=== PATIENT | male | born 1985 | race Caucasian/White ===

== ENCOUNTER 2017-02-04 05:31 | Emergency (ER) | payer MEDICARE, OTHER ==
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
--- NOTE | 2017-02-04 06:46 | Diagnostic Imaging Report ---
DARYL SIGALA [facility] [address] [facility] [address] [id number] Report Submission Date: Feb 04, 2017 6:42:08 AM CDT Patient Study Name: KESHA LOCK Date: Feb 04, 2017 6:20:25 AM CDT Modality Type: CR Gender: M Description: LOWER EXTREMITY : 89 Institution: [facility] Physician: DARYL SIGALA Right tibia and fibula, AP and lateral, 4 images History: Pain, swelling Findings: The osseous, joint and soft tissue structures are normal. Impression: Normal. Electronically signed on Feb 04, 2017 6:42:08 AM CDT by: Ford LORD
[2017-02-04] MEDS: KETOROLAC TROMETHAMINE 60 MG/2 ML VIAL IM ONE (07:00)
[2017-02-04 07:15] VITALS: BP 137/81
== END 2017-02-04 07:10 | disposition home or self-care (01) ==
LOC: ED 05:31
DX: S86.891A Other injury of other muscle(s) and tendon(s) at lower leg level, right leg, initial encounter (principal); X58.XXXA Exposure to other specified factors, initial encounter; Y93.9 Activity, unspecified; Y99.9 Unspecified external cause status
CPT/HCPCS: 73590; J1885; 96372; 99283

== ENCOUNTER 2017-02-05 15:09 | Emergency (ER) | payer MEDICARE, OTHER ==
--- NOTE | 2017-02-05 15:47 | ED Physician Documentation ---
Lower Extremity Problem - HISTORIAN Historian: patient - HPI Chief Complaint: Lower Extremity Problem Additional Information: he returns to ER today after seeing Dr Ornelas here yesterday. CC of swelling and warmth in his right ankle and foot, radiating proximally. These symptoms began 9 days ago, has been taking Aleve x 6 days but that has made it worse. He says the symptoms began because he began walking a lot more than before. He says he is walking 30 miles per day. He also states that he felt a blister form on the ball of his foot at that same time, but the blister went away. He said "i should have popped it, but I didn't." He also says he feels his heart beat in his ears and in his eyes when he tries to go to sleep. He is demanding, and it is difficult to have a conversation poli him. He is argumentative, and I'm trying to calmly speak with him. Dr Ornelasdx him with a musculoskeletal issue yesterday and prescribed him meloxicam, which he admits he didn't get the prescription filled. When I asked what would he like me to do different, he said just give me another prescription for the meloxicam. The nurses stated he told them he needed to be on IV antibiotics. They also said Dr Ornelas drove him to a local hotel. He ended our conversation by saying he wanted us to call the helicopter and fly him to [facility]. From the history and the exam, I do believe this is a musculoskeletal issue, an inflammatory issue, and I don't believe it is an infectious issue. Location of Injury: R foot, R ankle Onset: days ago Timing: still present Duration: constant Recent Injury: Yes (most likely repetitive over use injury.) Severity: mild Quality: pain, swelling Exacerbated By: walking Relieved By: nothing Associated Symptoms: denies: chest pain, shortness of breath, rapid heart rate, fainting Further Comments: no - ROS CONST: no problems MS/SKIN/LYMPH: none CVS/RESP: none GI/: none EYES/ENT: none NERUO/PSYCH: difficulty walking. denies: headache, dizziness - PAST HX Past History: none PE Risk Factors: none Surgeries/Procedures: none Allergies/Adverse Reactions: Allergies Allergy/AdvReac Type Severity Reaction Status Date / Time fluphenazine enanthate Allergy Intermediate Verified 02/04/17 06:02 [From Prolixin] fluphenazine HCl Allergy Intermediate Verified 02/04/17 06:02 [From Prolixin] Home Medications: Ambulatory Orders Medication Instructions Recorded Cyclobenzaprine HCl 10 mg PO PRN PRN 02/04/17 Ibuprofen [Advil] 800 mg PO TID 02/04/17 Meloxicam [Mobic] 7.5 mg PO BID PRN #30 tablet 02/04/17 Naproxen 500 mg PO PRN PRN 02/04/17 Olanzapine [Olanzapine] 5 mg PO HS 02/04/17 - SOCIAL HX Smoking History: non-smoker Alcohol Use: none Drug Use: none - FAMILY HX Family History: none - VITAL SIGNS Vital Signs: Vital Signs Temp Pulse Resp BP Pulse Ox 137/81 02/04/17 07:10 - REVIEWED ASSESSMENTS Nursing Assessment Reviewed: Yes Vitals Reviewed: Yes Progress - Progress Progress: patient was demanding and I couldn't answer his demands. the nurses asked him to sign out AMA, but he requested "all the paperwork with his name on it." before we could meet his demands he wanted to leave, so they escorted him to the door. Lower Extremity Problem - EXAM General Appearance: no distress Hips: bilateral hip: non-tender, normal inspection Legs: bilateral: non-tender, normal inspection Knees: bilateral: non-tender, normal inspection Ankle: right: no evidence of injury, soft tissue tenderness, swelling Foot: right foot: no evidence of injury, soft tissue tenderness, swelling Neuro/Tendon: normal sensation EENT: ENT inspection normal RESPIRATORY: no resp distress NEURO/PSYCH: oriented X3, speech/cognition abnml (was argumentative from the beginning.) SKIN: warm/dry, normal color. No: cyanosis, diaphoresis, jaundice, mottled, pallor Discharge Clincal Impression: Bursitis of ankle Qualifiers: Laterality: right Qualified Code(s): M71.571 - Other bursitis, not elsewhere classified, right ankle and foot Referrals: Primary Doctor,No [Primary Care Provider] - 2 Days Condition: Stable Disposition: 01 HOME, SELF-CARE Decision to Admit: NO Date of Decison to Admit: 02/05/17 Decision Time: 15:51
[2017-02-05 15:53] VITALS: BP 120/81
== END 2017-02-05 15:50 | disposition home or self-care (01) ==
LOC: ED 15:09
DX: M71.571 Other bursitis, not elsewhere classified, right ankle and foot (principal)
CPT/HCPCS: 99283